=== PATIENT | female | born 1965 | race African-American/Black ===

== ENCOUNTER 2018-01-15 01:03 | Emergency (ER) | END 2018-01-15 05:47 | disposition home or self-care (01) ==

== ENCOUNTER 2018-01-19 20:04 | Emergency (ER) | END 2018-01-19 22:57 | disposition left against medical advice (07) ==

== ENCOUNTER 2018-07-31 23:01 | Emergency (ER) | payer OTHER ==
[~2018-07-31] VITALS: Ht 157.5 cm; Wt 76.2 kg
[~2018-07-31 23:01] MED LIST: ONDA4TAB14 PO
[2018-07-31 23:05] VITALS: Ht 157.5 cm; Wt 76.2 kg
[2018-08-01] MEDS ORDERED: KETOROLAC 15 MG INJ IM STA (06:19)
[2018-08-01] MEDS ORDERED: DEXAMETHASONE 10 MG/ML 1 ML INJ IM ONE (06:30)
--- NOTE | 2018-08-01 06:35 | ERD ---
ER Documentation Chief Complaint Chief Complaint BILATERAL FOOT PAIN; NO KNOWN INJ; STATES BEEN WALKING ALOT HPI This is a 53-year-old female with a past medical history of controlled HIV, h omelessness, substance abuse who is presenting with exacerbated chronic pain. The patient reports intermittent episodes of aching sore joint pains, which feel worse today. The patient's primary pain starts in the back and goes down both of her legs. It is waxing and waning and worse with movement. The patient reports going to the hospital occasionally to get "a shot" for these symptoms, but she does not know what she usually receives. She reports that she has been walking a lot recently and has some minimal swelling to the legs, worse at the end of the day. She is not sure if she has arthritis or neuropathy. She has been told that she has had both in the past. She denies any trauma or injury. She denies any weakness or numbness or tingling to the extremities. She has no saddle anesthesia. She denies incontinence or retention of urine and stool. The patient denies feeling sick recently. The patient denies fever or chills. The patient has had no headache or vision changes. The patient does not endorse neck or back pain. The patient denies lightheadedness or dizziness. The patient has had no chest pain or trouble breathing. The patient denies nausea or vomiting. The patient denies abdominal pain. The patient denies changes to bowel movements or urination. The patient has had no focal deficits. ROS All systems reviewed and are negative except as per history of present illness. Medications Home Meds Active Scripts Ibuprofen* (Motrin*) 600 Mg Tab, 600 MG PO Q6H PRN for PAIN AND/OR INFLAMMATION, #30 TAB Prov:JESSY VIDAL MD 08/01/18 Ondansetron (Ondansetron Odt) 4 Mg Tab.rapdis, 4 MG PO Q6H PRN for NAUSEA AND/OR VOMITING, #7 TAB Prov:VANNA OVERTON DO 01/15/18 Allergies Allergies: Coded Allergies: Penicillins (Verified Allergy, Unknown, 01/15/18) PMhx/Soc History of Surgery: No Anesthesia Reaction: No Hx Neurological Disorder: No Hx Respiratory Disorders: No Hx Cardiac Disorders: No Hx Psychiatric Problems: No Hx Miscellaneous Medical Probl: Yes (HIV) Hx Alcohol Use: Yes Hx Substance Use: Yes (Meth) Hx Tobacco Use: Yes Smoking Status: Current every day smoker FmHx Family History: No diabetes Physical Exam Vitals Vital Signs Date Temp Pulse Resp B/P (MAP) Pulse Ox O2 O2 Flow FiO2 Time Delivery Rate 07/31/18 97.4 118 18 118/70 98 23:05 (86) Physical Exam Const: No apparent distress, well-developed, well-nourished Head: Normocephalic, Atraumatic Eyes: Normal Conjunctiva. Extraocular movements intact. Pupils equal, round and reactive to light ENT: Normal External Ears, Nose and Mouth. Neck: Full range of motion. No meningismus. Resp: Clear to auscultation bilaterally, No wheezes, rales or rhonchi Cardio: Regular rhythm. Mild tachycardia. No murmurs, rubs or gallops Abd: Soft, non tender, non distended. Normal bowel sounds Skin: No petechiae or rashes Back: No midline tenderness. No CVA tenderness Ext: No cyanosis, or edema Neur: Awake and alert, oriented 4. Cranial nerves intact. No facial droop. Normal strength, sensation and coordination. Psych: Normal Mood and Affect. No suicidal or homicidal ideations. No auditory or visual hallucinations. Results 24 hrs Current Medications Medications Dose Sig/Lula Start Time Status Last (Trade) Ordered Route PRN Stop Time Admin Dose Reason Admin Ketorolac 15 mg ONCE STAT 08/01/18 DC 08/01/18 Tromethamine IM 06:19 06:42 (Toradol) 08/01/18 06:21 10 mg ONCE ONCE 08/01/18 DC 08/01/18 Dexamethasone IM 06:30 06:42 (Decadron) 08/01/18 06:31 Procedures/MDM MDM The patient's presentation warrants further investigation. Previous medical records, if available, were reviewed. The patient presents for chronic exacerbated lower extremity pain. I have low suspicion for cauda equina. The patient has no palpable midline spinal tenderness. She has a negative straight leg raise bilaterally. She has full strength and sensation. I have decreased suspicion for sciatica, though this is a possibility. Arthritis is also a possibility. The patient reports being on HIV medications, which could potentially also lead to neuropathy. The patient has no saddle anesthesia. She has no incontinence or retention of urine and stool. I do not see any evidence of cellulitis or abscess or other soft tissue infection. I have very low suspicion for epidural abscess. The patient endorses lower extremity swelling, but it is not present currently. I do not see evidence of peripheral edema. The patient's cardiopulmonary exam is normal. I have decreased suspicion for a cardiac pathology. The patient has been urinating normally. I do not suspect renal disease. There is no clinical evidence of liver disease. TREATMENT/DISPOSITION The patient was treated with Toradol and Decadron IM to help with her pain and discomfort. DISCHARGE Upon reevaluation of the patient, symptoms have improved. No emergent diagnoses were identified. At this time, I feel that the patient stable for discharge. The patient was instructed to follow-up with a primary care physician in 1-3 days. The patient will be given strict precautions with which to return to the emergency department. The patient does endorse intermittent homelessness, but she reports that she has a place to stay currently. The patient is medically stable for discharge. director of environmental services were offered to her, but the patient reports that she does not want to stay in the emergency department today for any services. Prescriptions: Ibuprofen Disclaimer: Inadvertent spelling and grammatical errors are likely due to EHR/dictation software use and do not reflect on the overall quality of patient care. Note that the electronic time recorded on this note does not necessarily reflect the actual time of the patient encounter. Departure Diagnosis: Primary Impression: Bilateral lower extremity pain Additional Impression: Chronic pain Chronic pain type: other chronic pain Qualified Codes: G89.29 - Other chronic pain Condition: JESSY Singleton MD Aug 01, 2018 06:34
[2018-08-01] MEDS ORDERED: IBUP-1542 PO (06:36)
[2018-08-01 07:20] VITALS: BP 134/97; PULSE 80; RESP 18
== END 2018-08-01 07:42 | disposition home or self-care (01) ==
LOC: E/R 23:01
DX: M79.671 Pain in right foot (principal); M79.672 Pain in left foot
CPT/HCPCS: 96372; J1100; J1885; Z7502

== ENCOUNTER 2018-09-02 04:29 | Emergency (ER) | payer OTHER ==
[~2018-09-02] VITALS: Ht 157.5 cm; Wt 74.7 kg
[~2018-09-02 04:29] MED LIST changes: +IBUP-1542 PO
[2018-09-02 04:33] VITALS: BP 113/61; PULSE 107; RESP 16; Ht 157.5 cm; Wt 74.7 kg
[2018-09-02] MEDS ORDERED: morphine 4 MG/ML VIAL IM STA (05:24)
[2018-09-02] MEDS ORDERED: ONDANSETRON (ODT) 4 MG TAB ODT STA (05:24)
[2018-09-02] MEDS ORDERED: KETOROLAC 30 MG INJ IM STA (05:24)
--- NOTE | 2018-09-02 05:24 | ERD ---
ER Documentation Chief Complaint Chief Complaint feet pain going all over her body; takes Tramadol HPI This is a 53-year-old female presents emergency department with complaints of leg pain. Patient stated that she has been having this same pain for years. No trauma. Patient is asking for a morphine and tramadol. LMP: Denies headache, head injury, loss of consciousness, dizziness, neck pain, neck stiffness, throat pain, difficulty swallowing, difficulty breathing lying flat, shoulder pain, chest pain, back pain, abdominal pain, nausea, vomiting, constipation, diarrhea, urinary symptoms, or possibility being , loss of bowel and bladder control, trauma, injury, falls, difficulty walking due to pain, numbness or tingling sensation, calf pain, recent travel, recent major surgery in the last 3 weeks, calf pain, recent long travel, recent exposure to any illness, recent antibiotic use in the last 3 months, fever, chills, seizures. Past medical history: Surgical history: Social: Denies smoking, use of alcoholic beverages, use of illegal drugs. ROS All systems reviewed and are negative except as per history of present illness. Medications Home Meds Active Scripts Gabapentin* (Neurontin*) 300 Mg Capsule, 300 MG PO BID, #14 CAP Prov:THEA RINCON MD 09/08/18 Ibuprofen* (Motrin*) 600 Mg Tab, 600 MG PO Q6H PRN for PAIN AND/OR INFLAMMATION, #30 TAB Prov:JESSY VIDAL MD 08/01/18 Ondansetron (Ondansetron Odt) 4 Mg Tab.rapdis, 4 MG PO Q6H PRN for NAUSEA AND/OR VOMITING, #7 TAB Prov:VANNA OVERTON DO 01/15/18 Allergies Allergies: Coded Allergies: Penicillins (Verified Allergy, Unknown, 01/15/18) PMhx/Soc History of Surgery: No Anesthesia Reaction: No Hx Neurological Disorder: No Hx Respiratory Disorders: No Hx Cardiac Disorders: No Hx Psychiatric Problems: No Hx Miscellaneous Medical Probl: Yes (HIV) Hx Alcohol Use: Yes Hx Substance Use: Yes (Meth) Hx Tobacco Use: Yes Physical Exam Vitals Physical Exam Const: No acute distress Head: Atraumatic Eyes: Normal Conjunctiva ENT: Normal External Ears, Nose and Mouth. Neck: Full range of motion. No meningismus. Resp: Clear to auscultation bilaterally Cardio: Regular rate and rhythm, no murmurs Abd: Soft, non tender, non distended. Normal bowel sounds Skin: No petechiae or rashes Back: No midline or flank tenderness Ext: No cyanosis, or edema. Positive leg test bilaterally. Bilateral hips are stable and unremarkable. No calf tenderness bilaterally. Bilateral pedal pulses are within normal limits. Capillary refills to bilateral lower extremity are unremarkable. No neurovascular deficit. Ambulatory with steady gait. Neur: Awake and alert. No neurological deficits. Psych: Normal Mood and Affect Results 24 hrs Current Medications Medications Dose Sig/Lula Start Time Status Last (Trade) Ordered Route PRN Stop Time Admin Dose Reason Admin Ketorolac 30 mg ONCE STAT 09/02/18 DC 09/02/18 Tromethamine IM 05:24 05:39 (Toradol) 09/02/18 05:26 Morphine 4 mg ONCE STAT 09/02/18 DC 09/02/18 Sulfate IM 05:24 05:39 (morphine) 09/02/18 05:26 Famotidine 40 mg ONCE ONCE 09/02/18 DC 09/02/18 (Pepcid) PO 05:30 05:37 09/02/18 05:31 Ondansetron 4 mg ONCE STAT 09/02/18 DC 09/02/18 HCl (Zofran ODT 05:24 05:36 Odt) 09/02/18 05:26 Procedures/MDM Diagnostic tests: Clinical exam. Treatment: Toradol IM. Morphine IM. Re-evaluation: Denies chest pain, back pain, leg pain. No saddle anesthesia. No neurovascular deficits. No neurological deficits. Stated that she feels much better at this time and that she is ready to go home. Differential diagnosis I have low suspicion for DVT, compartment syndrome, open fracture, displaced fracture, cauda equina syndrome. Final diagnosis: Chronic pain. Drug seeking behavior. Prescription: Motrin. Omeprazole. Follow-up with PCP in the next 24-48 hours. Come back here in the emergency department for any new symptoms or any worsening symptoms. All questions and concerns were answered. Patient and family members verbalized understanding and agreed with plan of care. Hemodynamically stable on discharge. Departure Diagnosis: Primary Impression: Chronic pain Additional Impression: Drug-seeking behavior Condition: Stable Additional Instructions: Follow-up with PCP in the next 24-48 hours. Come back here in the emergency department for any new symptoms or any worsening symptoms. TAMI SOUZA September 02, 2018 05:24
[2018-09-02] MEDS ORDERED: FAMOTIDINE 20 MG TAB PO ONE (05:30)
== END 2018-09-02 06:20 | disposition home or self-care (01) ==
LOC: FTE 04:29
DX: G89.29 Other chronic pain (principal); Z72.89 Other problems related to lifestyle
CPT/HCPCS: 96372; J1885; J2270; Z7502; Z7610

== ENCOUNTER 2018-09-07 21:25 | Emergency (ER) | payer OTHER ==
[~2018-09-07] VITALS: Ht 160 cm; Wt 76.7 kg
[2018-09-07 21:29] VITALS: Ht 160 cm; Wt 76.7 kg
--- NOTE | 2018-09-08 03:07 | ERD ---
ER Documentation Chief Complaint Chief Complaint LEFT LEG INTERMITTENT PAIN HPI The patient is a 53-year-old female, presenting to the ER because of intermittent left leg pain. She has history of peripheral neuropathy and has been seen in the ER multiple times for similar symptoms.. She denies any trauma, denies fever, chills, neck pain, chest pain, dyspnea, abdominal pain, vomiting, dysuria, diarrhea. She smokes and drinks, denies illicit drug Past medical history: HIV, peripheral neuropathy ROS All systems reviewed and are negative except as per history of present illness. Medications Home Meds Active Scripts Gabapentin* (Neurontin*) 300 Mg Capsule, 300 MG PO BID, #14 CAP Prov:THEA RINCON MD 09/08/18 Ibuprofen* (Motrin*) 600 Mg Tab, 600 MG PO Q6H PRN for PAIN AND/OR INFLAMMATION, #30 TAB Prov:JESSY VIDAL MD 08/01/18 Ondansetron (Ondansetron Odt) 4 Mg Tab.rapdis, 4 MG PO Q6H PRN for NAUSEA AND/OR VOMITING, #7 TAB Prov:VANNA OVERTON DO 01/15/18 Allergies Allergies: Coded Allergies: Penicillins (Verified Allergy, Unknown, 01/15/18) PMhx/Soc History of Surgery: No Anesthesia Reaction: No Hx Neurological Disorder: No Hx Respiratory Disorders: No Hx Cardiac Disorders: No Hx Psychiatric Problems: No Hx Miscellaneous Medical Probl: Yes (HIV) Hx Alcohol Use: Yes Hx Substance Use: Yes (Meth) Hx Tobacco Use: Yes Physical Exam Vitals Vital Signs Date Temp Pulse Resp B/P (MAP) Pulse Ox O2 O2 Flow FiO2 Time Delivery Rate 09/08/18 89 18 104/87 98 Room Air 03:00 (93) 09/07/18 97.8 100 20 148/77 99 21:29 (100) Physical Exam Const: No acute distress. Head: Atraumatic. Eyes: Normal Conjunctiva. ENT: Normal External Ears, Nose and Mouth. Neck: Full range of motion. No meningismus. Resp: Clear to auscultation bilaterally. Cardio: Regular rate and rhythm. Abd: Soft, non distended, normal bowel sounds, non tender. Skin: No petechiae or rashes. Back: No midline or flank tenderness. Ext: No cyanosis, or edema. No calf tenderness Neur: Awake and alert. No focal deficit Psych: Normal Mood and Affect. Results 24 hrs Current Medications Medications Dose Sig/Lula Start Time Status Last (Trade) Ordered Route PRN Stop Time Admin Dose Reason Admin Gabapentin 300 mg ONCE ONCE 09/08/18 09/08/18 (Neurontin) PO 04:00 03:46 09/08/18 04:01 Procedures/MDM MEDICAL MAKING DECISION: The patient is a 53-year-old female, presenting with chronic peripheral neuropathy, was treated with Neurontin 3 mg p.o. The differential diagnoses considered include but are not limited to DVT, cellulitis, musculoskeletal pain, chronic pain Departure Diagnosis: Primary Impression: Peripheral neuropathy Condition: Good Comments She was discharged with Neurontin I discussed the findings with the patient. I advised the patient to follow-up with the primary physician in about 2-3 days, sooner if needed and return if any concern. Disclaimer: Inadvertent spelling and grammatical errors are likely due to EHR/dictation software use and do not reflect on the overall quality of patient care. Also, please note that the electronic time recorded on this note does not necessarily reflect the actual time of the patient encounter. THEA RINCON MD September 08, 2018 03:07
[2018-09-08] MEDS ORDERED: GABA300C PO (03:32)
[2018-09-08] MEDS ORDERED: GABAPENTIN 300 MG CAP PO ONE (04:00)
[2018-09-08 05:06] VITALS: BP 122/77; PULSE 87; RESP 14
== END 2018-09-08 05:06 | disposition home or self-care (01) ==
LOC: E/R 21:25
DX: G62.9 Polyneuropathy, unspecified (principal); F17.210 Nicotine dependence, cigarettes, uncomplicated; Z21 Asymptomatic human immunodeficiency virus [HIV] infection status
CPT/HCPCS: 99283

== ENCOUNTER 2018-10-07 19:48 | Emergency (ER) | payer OTHER ==
[~2018-10-07] VITALS: Ht 162.6 cm; Wt 73.6 kg
[~2018-10-07 19:48] MED LIST changes: +GABA300C PO
[2018-10-07 20:02] VITALS: Ht 162.6 cm; Wt 73.6 kg
--- NOTE | 2018-10-07 20:40 | ERD ---
ER Documentation Chief Complaint Chief Complaint pain left leg x 1 week. denies trauma HPI This is a 53-year-old female presents here in emergency department with complaints of left lower extremity pain for about a week. Stated that the pain started her left lower back that radiates to left leg. Stated that she has this pain before and that she was here. Stated that I was the provider who saw her and requests the medicine that I gave her before as this helps her a lot. LMP: Stated that she does not have this anymore. Denies headache, head injury, loss of consciousness, dizziness, neck pain, neck stiffness, throat pain, difficulty swallowing, difficulty breathing lying flat, shoulder pain, chest pain, abdominal pain, nausea, vomiting, constipation, diarrhea, urinary symptoms, or possibility being , loss of bowel and bladder control, trauma, injury, falls, difficulty walking due to pain, numbness or tingling sensation, calf pain, recent travel, recent major surgery in the last 3 weeks, calf pain, recent long travel, recent exposure to any illness, recent antibiotic use in the last 3 months, fever, chills, seizures. Past medical history: Prediabetes. Surgical history: x1. Social: Denies smoking, use of alcoholic beverages, use of illegal drugs. ROS All systems reviewed and are negative except as per history of present illness. Medications Home Meds Active Scripts Diphenhydramine Hcl* (Benadryl*) 25 Mg Cap, 25 MG PO Q6 PRN for ITCHING/RASH, #30 TAB Prov:PASILABAN,KLAR F 10/07/18 Omeprazole* (Omeprazole*) 40 Mg Capsule.dr, 40 MG PO DAILY, #30 CAP Prov:PASILABAN,KLAR F 10/07/18 Gabapentin* (Gabapentin*) 300 Mg Capsule, 300 MG PO BID PRN for PAIN, #14 CAP Prov:PASILABAN,KLAR F 10/07/18 Ibuprofen* (Motrin*) 800 Mg Tab, 800 MG PO Q6H PRN for PAIN AND OR ELEVATED TEMP, #15 TAB Prov:PASILABAN,KLAR F 10/07/18 Gabapentin* (Neurontin*) 300 Mg Capsule, 300 MG PO BID, #14 CAP Prov:THEA RINCON MD 09/08/18 Ibuprofen* (Motrin*) 600 Mg Tab, 600 MG PO Q6H PRN for PAIN AND/OR INFLAMMATION, #30 TAB Prov:JESSY VIDAL MD 08/01/18 Ondansetron (Ondansetron Odt) 4 Mg Tab.rapdis, 4 MG PO Q6H PRN for NAUSEA AND/OR VOMITING, #7 TAB Prov:VANNA OVERTON DO 01/15/18 Allergies Allergies: Coded Allergies: Penicillins (Verified Allergy, Unknown, 01/15/18) PMhx/Soc History of Surgery: Yes (C SEC X'S 1) Anesthesia Reaction: No Hx Neurological Disorder: No Hx Respiratory Disorders: No Hx Cardiac Disorders: No Hx Psychiatric Problems: No Hx Miscellaneous Medical Probl: Yes (HIV, NEUROPATHY) Hx Alcohol Use: Yes Hx Substance Use: Yes (Meth) Hx Tobacco Use: Yes Smoking Status: Current some day smoker Physical Exam Vitals Vital Signs Date Temp Pulse Resp B/P (MAP) Pulse Ox O2 O2 Flow FiO2 Time Delivery Rate 10/07/18 98.8 70 18 135/85 99 Room Air 21:38 (102) 10/07/18 98.8 98 18 149/92 99 20:02 (111) Physical Exam Const: No acute distress Head: Atraumatic Eyes: Normal Conjunctiva ENT: Normal External Ears, Nose and Mouth. Neck: Full range of motion. No meningismus. Resp: Clear to auscultation bilaterally Cardio: Regular rate and rhythm, no murmurs Abd: Soft, non tender, non distended. Normal bowel sounds. Negative Tillman sign but negative Yevgeniy sign (heel jar test). Negative psoas) negative Rovsing sign. No CVA tenderness. Skin: No petechiae or rashes Back: No midline or flank tenderness. Bilateral hips are stable and unremarkable. No saddle anesthesia. Ext: No cyanosis, or edema. Positive left straight leg test. Positive cross positive left cross straight leg test. Negative right straight leg test. Negative right cross straight leg test. Symmetrical knees. No calf tenderness bilaterally. Bilateral ankles: Unremarkable. Bilateral pedal pulses are within normal limits. Capillary refills to bilateral lower extremities are less than 2 seconds. No neurovascular deficits. Neur: Awake and alert. Sensation is intact. No neurological deficits. Psych: Normal Mood and Affect Results 24 hrs Current Medications Medications Dose Sig/Lula Start Time Status Last (Trade) Ordered Route PRN Stop Time Admin Dose Reason Admin Ketorolac 30 mg ONCE STAT 6/29/19 DC 10/07/18 Tromethamine IM 20:41 21:03 (Toradol) 10/07/18 20:42 Famotidine 40 mg ONCE ONCE 10/07/18 DC 10/07/18 (Pepcid) PO 21:00 21:03 10/07/18 21:01 1 tab ONCE ONCE 10/07/18 DC 10/07/18 Acetaminophen PO 21:00 21:03 / 10/07/18 21:01 Hydrocodone Bitart ([place] (5/325)) Procedures/MDM Diagnostic tests: Clinical exam. Treatment: Toradol IM. [place] p.o. Pepcid p.o. Re-evaluation: Denies back pain, leg pain. No saddle anesthesia. No calf tenderness bilaterally. Capillary refills to bilateral lower extremities are less than 2 seconds. No neurovascular deficits. No neurological deficit. Stated that she feels much better at this time and that she is ready to go home. Stated that she is comfortable to go home. Differential diagnosis I have low suspicion for DVT, fractures, compartment syndrome, osteomyelitis, necrotizing fasciitis, pyelonephritis, nephrolithiasis, obstructing kidney stones, septic stones, CHF, cauda equina syndrome. Final diagnosis: Peripheral neuropathy. Chronic pain. Sciatica. Leg pain. Prescription: Omeprazole. Motrin. Gabapentin. Follow-up with PCP in the next 24-48 hours. Follow-up with pain specialist in the next 24 to 48 hours. Come back here in the emergency department for any new symptoms or any worsening symptoms. All questions and concerns were answered. Patient and family members verbalized understanding and agreed with plan of care. Hemodynamically stable on discharge. Departure Diagnosis: Primary Impression: Back pain Additional Impressions: Leg pain Sciatica Condition: Stable Additional Instructions: Follow-up with PCP in the next 24-48 hours. Follow-up with pain specialist in the next 24 to 48 hours. Come back here in the emergency department for any new symptoms or any worsening symptoms. TAMI SOUZA Oct 07, 2018 20:40
[2018-10-07] MEDS ORDERED: KETOROLAC 30 MG INJ IM STA (20:41)
[2018-10-07] MEDS ORDERED: IBUP800T48 PO (20:44)
[2018-10-07] MEDS ORDERED: GABA300C16 PO (20:45)
[2018-10-07] MEDS ORDERED: OMEP40CA6 PO (20:45)
[2018-10-07] MEDS ORDERED: HYDROCODONE/APAP (5/325) TAB PO ONE (21:00)
[2018-10-07] MEDS ORDERED: FAMOTIDINE 20 MG TAB PO ONE (21:00)
[2018-10-07] MEDS ORDERED: BEN25 PO (21:09)
[2018-10-07 21:38] VITALS: BP 135/85; PULSE 70; RESP 18
== END 2018-10-07 21:39 | disposition home or self-care (01) ==
LOC: FTE 19:48
DX: M54.42 Lumbago with sciatica, left side (principal); F17.210 Nicotine dependence, cigarettes, uncomplicated
CPT/HCPCS: 96372; J1885; Z7502; Z7610

== ENCOUNTER 2018-11-23 23:27 | Emergency (ER) | payer OTHER ==
[~2018-11-23] VITALS: Ht 160 cm; Wt 70.0 kg
[~2018-11-23 23:27] MED LIST changes: +BEN25 PO; +CEPH-443 PO; +EMTR1TAB16 PO; +GABA300C16 PO; +GABA400C14 PO; +IBUP800T48 PO; +LACT1CAP57 PO; +OMEP40CA6 PO; +SULF1TAB31 PO
[2018-11-23 23:33] VITALS: Ht 160 cm; Wt 70.0 kg
[2018-11-24 01:50] VITALS: BP 118/81; PULSE 88; RESP 18
== END 2018-11-24 01:50 | disposition home or self-care (01) ==
LOC: FTE 23:27
DX: L03.116 Cellulitis of left lower limb (principal); F17.210 Nicotine dependence, cigarettes, uncomplicated; N30.00 Acute cystitis without hematuria; Z21 Asymptomatic human immunodeficiency virus [HIV] infection status; Z76.0 Encounter for issue of repeat prescription
CPT/HCPCS: 36415; 80053; 81001; 81025; 85025; 93970; Z7502; Z7610